=== PATIENT | male | born 1970 | race Caucasian/White ===

== ENCOUNTER 2019-02-20 14:07 | Emergency (ER) | payer OTHER ==
[2019-02-20 14:19] VITALS: BP 115/73
--- NOTE | 2019-02-20 14:26 | ED Physician Documentation ---
History of Present Illness - Stated complaint Stated Complaint: HAND LAC RT - Chief complaint Chief Complaint: Laceration - History of Present Illness Timing: Prior to arrival - Additonal information Additional information: Patient is a previously healthy right-handed 48-year-old male presenting with superficial laceration to the dorsal aspect of the right hand along the radial side not involving underlying structures, joints, or finger. Patient reports that he was attempting to place 2 ends of a pipe together when it slipped and cut him. No other injuries. Tetanus unknown. Patient denies significant change in sensation, strength, range of motion to hand. No other improving or worsening factors noted. Review of Systems Skin: reports: Laceration (s) Musculoskeletal: reports: Extremity pain. denies: Extremity swelling Neurologic: denies: Focal weakness, Numbness PD PAST MEDICAL HISTORY - Past Medical History Cardiovascular: None Respiratory: Other Endocrine/Autoimmune: None GI: None : None HEENT: None Psych: None Musculoskeletal: None Derm: None - Past Surgical History Past Surgical History: Yes General: Appendectomy - Present Medications Home Medications: Ambulatory Orders Medication Instructions Recorded Confirmed No Known Home Medications 02/01/13 02/20/19 - Allergies Allergies/Adverse Reactions: Allergies Allergy/AdvReac Type Severity Reaction Status Date / Time No Known Drug Allergies Allergy Verified 02/20/19 14:19 - Social History Does the pt smoke?: No Smoking Status: Never smoker Does the pt drink ETOH?: Yes Does the pt have substance abuse?: No - POLST Patient has POLST: No PD ED PE NORMAL - Vitals Vital signs reviewed: Yes - General General: Alert and oriented X 3, No acute distress, Well developed/nourished - HEENT HEENT: Atraumatic, Moist mucous membranes - Neck Neck: Supple, no meningeal sign - Cardiac Cardiac: Strong equal pulses - Respiratory Respiratory: No respiratory distress - Derm Derm: Normal color, Warm and dry, Other (Less than 1 inch superficial flap-like laceration to the dorsal aspect of the right hand below the thumbWithout evidence of damage to underlying structures, retained foreign body, infection or other complication.) - Extremities Extremities: No deformity, No tenderness to palpate, No edema - Neuro Neuro: Alert and oriented X 3, No motor deficit, No sensory deficit - Psych Psych: Normal mood, Normal affect Results - Vitals Vitals: Vital Signs - 24 hr 08/10/19 14:17 Temperature 36.5 C Heart Rate 62 Respiratory 18 Rate Blood Pressure 115/73 O2 Saturation 98 Oxygen O2 Source Room air Procedures - Laceration (location) Hand right Length in cm: 1 Wound type: Flap Anesthesia: LET Wound Preparation: Irrigated copiously NS Skin layer closure: Dermabond, Steri strips Other: Patient tolerated well, No complications, Neurovascular intact, Tetanus booster given PD MEDICAL DECISION MAKING - ED course Complexity details: re-evaluated patient, considered differential, d/w patient ED course: Patient presenting with a superficial laceration to right hand that does not show damage underlying structures, retained foreign body, signs of infection or other complication. Tetanus updated. Wound anesthetized with let and copiously irrigated. Small area repaired with Steri-Strips and glue and other area will heal well on its own without further closure or intervention. Discussed wound care, return precautions, appropriate follow-up. Patient voiced understanding and is comfortable with discharge plan. Departure - Departure Disposition: 01 Home, Self Care Clinical Impression: Laceration Condition: Good Instructions: ED Laceration All Follow-Up: Oneil Conn MD [Primary Care Provider] - Within 3 Days Comments: Please keep wound clean and dry using running water and soap only to clean. Do not submerge underwater. If preferred, may apply bacitracin or Neosporin to the area 1-2 times daily, but do recommend keeping area otherwise dry so as can scab and heal over. Please do not remove tape or glue, these will come off on their own. Follow-up with primary care physician in next 2 to 3 days and return to ED sooner if experience worsening symptoms, signs of infection, opening of wound, or have other concerns.
[2019-02-20] MEDS ORDERED: LIDOCAINE-EPINEPH-TETRACAINE 3 ML SYRINGE TOP STA (14:56)
[2019-02-20] MEDS ORDERED: TETANUS/DIPHTHERIA/PERTUSSIS 0.5 ML SYRINGE IM ONE (14:56)
== END 2019-02-20 16:10 | disposition home or self-care (01) ==
LOC: ED 14:07
DX: S61.411A Laceration without foreign body of right hand, initial encounter (principal); W45.8XXA Other foreign body or object entering through skin, initial encounter; Y93.89 Activity, other specified
CPT/HCPCS: 12001; 90471

== ENCOUNTER 2020-08-04 14:49 | Outpatient (CLI) | payer OTHER | END 2020-08-04 14:50 | disposition home or self-care (01) | LOC: COV 14:49 | PROVIDERS: ATTEND Family Medicine | DX: Z20.822 Contact with and (suspected) exposure to COVID-19 (principal) ==